=== PATIENT | female | born 1950 | race Caucasian/White ===

== ENCOUNTER 2017-03-07 08:00 | Day surgery (SDC) | payer MEDICARE, MEDICAID ==
[~2017-03-07] VITALS: Ht 162.6 cm; Wt 80.7 kg
[~2017-03-07 08:00] MED LIST: 0.9% Sodium Chloride 1,000 ML IV PRN; BUPR100T7 PO; BUPR200T34 PO; LOSA25TA21 PO; METO25TA6 PO; OMEP20CA11 PO; PROZ20 PO; Sodium Chloride LOK Flush 10 mL Syringe IV PRN; fentaNYL-PF 50 mCg/mL 2 mL Inj IVPUSH PRN
[2017-03-07 08:29] VITALS: BP 121/74; PULSE 53; RESP 16; O2SAT 97
[2017-03-07 09:30] VITALS: BP 100/56; PULSE 64; O2SAT 99
[2017-03-07 09:41] VITALS: BP 99/57; PULSE 60; O2SAT 95
[2017-03-07 09:49] VITALS: BP 109/76; PULSE 67; O2SAT 98
--- NOTE | 2017-03-07 09:52 | ENDO ---
[address] [address] ENDOSCOPY PROCEDURE PATIENT: JASS BANERJEE : 1950 MR#: [id number] ADMIT: 03/07/2017 JOB ID: [id number] DATE OF PROCEDURE: 03/07/2017 PRIMARY PROVIDER: Ezequiel Rhodes MD PROCEDURE: Colonoscopy with biopsies. INDICATIONS: A 66-year-old female with diarrhea particularly bothersome over the last month or so. EQUIPMENT: PCevidanza-H180AL. SEDATION: 1. Versed 4 mg. 2. Fentanyl 75 mcg. COMPLICATIONS: None identified. BOWEL PREP: Very adequate. PROCEDURE INFO: After the risks and benefits were explained, written and verbal informed consent was obtained. The patient was brought into the Endoscopy Suite and placed into the left lateral decubitus position. Sedation was achieved using the above-stated medications with the addition of oxygen via nasal cannula. A digital rectal examination was accomplished. Minimal internal hemorrhoids were appreciated. No other pathology. The scope was introduced into the rectum and advanced to the cecum as identified by the appendiceal orifice and ileocecal valve. The scope was advanced into the terminal ileum. We then slowly withdrew to carefully examine the mucosa for any defects or lesions. Multiple direct views were made through the dentate line for exclusion of pathology. The colon was decompressed. The scope removed from the patient who tolerated the procedure well. FINDINGS: Some moderate diverticulosis concentrated in the sigmoid region. No significant polyps, mass lesions, or inflammatory features identified throughout. The terminal ileal mucosa appeared visually normal. Random colon biopsies were taken for exclusion of microscopic colitis. ENDOSCOPIC DIAGNOSES: Visually unremarkable colonoscopy to cecum. RECOMMENDATIONS: 1. Await histopathology. 2. The patient is encouraged to initiate fiber supplementation with 2 tablespoons ground flaxseed fiber mixed with 8 ounces of water or juice at least once daily. 3. Follow up in GI clinic with Mireya Ornelas in the next few weeks for clinical progress check.
--- NOTE | 2017-03-08 15:55 | PATH ---
SURGICAL PATHOLOGY Attending Physician:Be Butler CASE STATUS: Signed Out PATIENT NAME: JASS BANERJEE PID: [id number] : 1950 DATE COLLECTED:03/07/2017 15:29 SPECIMEN: Colon, Biopsy CLINICAL HISTORY: 1. RANDOM COLON FINAL DIAGNOSIS: Random Colon Biopsies: Small fragment of colorectal mucosa with no diagnostic abnormality. Negative for active, chronic, and microscopic colitis. Negative for dysplasia and malignancy. ICD10: K52.9 GROSS DESCRIPTION: Received in formalin, labeled with the patient's name and "random colon" is one fragment of funk soft tissue measuring 0.3 x 0.2 x 0.1 cm. The fragment is totally submitted in one cassette. ([id number]) ICD-9 CODES: CPT CODES: 1: 22678 Electronically Signed Out By Zenobia Daniels MD [facility] [place] Pathology Zenobia Daniels MD [facility], [address] [place] [address], [place] [address] Technical component performed at [facility], [address] [place] [address] Ave[address], [place], [address]
== END 2017-03-07 23:59 | disposition home or self-care (01) ==
LOC: END 08:00
PROVIDERS: ATTEND Internal Medicine Gastroenterology
DX: K58.0 Irritable bowel syndrome with diarrhea (principal); I10 Essential (primary) hypertension; F32.9 Major depressive disorder, single episode, unspecified; K57.30 Diverticulosis of large intestine without perforation or abscess without bleeding
CPT/HCPCS: 45380; G0500; J2250; J3010; J7030